=== PATIENT | male | born 1980 | race Caucasian/White ===

== ENCOUNTER 2021-12-28 09:36 | Emergency (ER) | payer OTHER ==
[2021-12-28 11:09] LABS: HEMOGLOBIN 15.5 gm/dl (14.0-17.5); RED BLOOD COUNT 5.4 M/UL (4.20-5.50); WHITE BLOOD COUNT 9.6 K/UL (4.5-11.0)
[2021-12-28 11:35] LABS: BUN/CREATININE RATIO 15 (0-10)
[2021-12-28] MEDS ORDERED: HYDROCODON-ACE1 EAC4 PO (12:33)
== END 2021-12-28 13:10 | disposition home or self-care (01) ==
LOC: ER1 09:36
PROVIDERS: Emergency Medicine
DX: M51.26 Other intervertebral disc displacement, lumbar region (principal)
CPT/HCPCS: 72131; 80053; 85025; 85652; 86140; 93971; 99284